=== PATIENT | male | born 1960 | race Caucasian/White ===

== ENCOUNTER 2016-07-24 12:31 | Emergency (ER) | payer BC ==
[~2016-07-24] VITALS: Ht 170.2 cm; Wt 93.3 kg
[~2016-07-24 12:31] MED LIST: KEFLEX500 MG PO
[2016-07-24 15:32] LABS: HEMATOCRIT 46.6 % (38.0-50.0); MCH 29.4 PG (29.0-34.0); MCHC 31.5 G/DL (30.0-36.0); MCV 93.2 FL (86-99); MEAN PLAT.VOLUME 8.9 uM^3 (9.0-12.4); PLATELET COUNT 293 K/uL (156-360); RBC DIS.WIDTH-SD 44.3 % (39-53); WHITE BLOOD COUNT 17.5 K/uL (4.1-10.2)
[2016-07-24 15:50] LABS: CHLORIDE 105 mEq/L (99-109); SODIUM 138 mEq/L (136-147)
[2016-07-24 15:52] LABS: GLUCOSE 110 mg/dL (70-99)
[2016-07-24 15:53] LABS: ANION GAP 9 MEQ/L (2-14)
[2016-07-24 15:54] LABS: TOTAL BILIRUBIN 0.8 mg/dL (0.0-1.0)
[2016-07-24 15:55] LABS: ALKALINE PHOSPHATASE 85 IU/L (3-129)
[2016-07-24 15:56] LABS: GFR ESTIMATE (CALCULATED) > 59 mL/min/
[2016-07-24 15:57] LABS: UREA NITROGEN (BUN) 19 mg/dL (9-23)
[2016-07-24 17:21] VITALS: BP 144/95
[2016-07-25] MEDS ORDERED: ZESTRIL2.5 MG PO (20:02)
== END 2016-07-24 17:22 | disposition home or self-care (01) ==
LOC: EME 12:31 → EXP 12:31
PROVIDERS: Nurse Practitioner Family
DX: L03.113 Cellulitis of right upper limb (principal); L02.511 Cutaneous abscess of right hand; I10 Essential (primary) hypertension; E78.5 Hyperlipidemia, unspecified
CPT/HCPCS: 73130; 80048; 80053; 83605; 85025; 85027; 87040; 87070; 87075; 87077; 87186; 87205; 99281; 99283; J3370